=== PATIENT | male | born 1990 | race Two or more races ===

== ENCOUNTER 2020-02-08 08:27 | Emergency (ER) | payer OTHER ==
[~2020-02-08] VITALS: Ht 175.3 cm; Wt 95.3 kg
[2020-02-08 08:46] VITALS: BP 148/78
[2020-02-08] MEDS ORDERED: METHOCARBAMOL 500 MG TAB PO ONE (09:15)
[2020-02-08] MEDS ORDERED: ACETAMINOPHEN 500 MG TAB PO ONE (09:15)
== END 2020-02-08 12:00 | disposition home or self-care (01) ==
LOC: ER 08:27
DX: S16.1XXA Strain of muscle, fascia and tendon at neck level, initial encounter (principal); M54.6 Pain in thoracic spine; R51 Headache; R42 Dizziness and giddiness; V89.2XXA Person injured in unspecified motor-vehicle accident, traffic, initial encounter; Y93.I9 Activity, other involving external motion; Y92.488 Other paved roadways as the place of occurrence of the external cause; Y99.8 Other external cause status
CPT/HCPCS: 70450; 72040; 72070